=== PATIENT | female | born 1995 | race Caucasian/White ===

== ENCOUNTER 2019-11-20 10:56 | Inpatient (IN) | payer BC, OTHER ==
[~2019-11-20] VITALS: Ht 160 cm; Wt 74.8 kg
[~2019-11-20 10:56] MED LIST: AMOXICILLIN500 MG PO; AUGMENTIN 875-1 EACH PO; DEXAMETHASONE4 MG PO; NORCO 5-325 TA1 EACH PO
--- NOTE | 2019-11-20 16:48 | PR ---
[facility] [address], [place] [address] Signed Progress Notes IP Datetime Report Generated by CPSamuel: 11/20/2019 16:48 PROGRESS NOTES: [id number] Impression: Normal Progression of Labor; Reassuring Heart Rate Procedures: Intrauterine Pressure Catheter; Ultrasound Plan: Augmentation Informed Consent Obtain: Vaginal Delivery VITAL SIGNS: [id number] EXAM: [id number] Dilatation: 3.0 Effacement: 75 Station: -3 Contractions: Irregular MEMBRANES: [id number] Comments: Pt seen and examined. Rare mild contractions. Cat 1 tracing. Discussed IUPC and augmentation w/ pitcoin. Pt understands and agrees. On cervical exam, vertex well applied to cervix however fingers are noted. Hand behind head. Bedside US was performed that confirms this positioning. IUPC was carefully placed and vertex position again confirmed. No hand presentation. Discussed risk of hand/shoulder presentation and indications for . Pt understands and agrees. Will augment w/ low dose pitocin FETUS A: [id number] FHR Baseline: 145 Variability: Moderate 6-25bpm Accelerations: None Decelerations: None FHR Category: Category I Comments on Fetus A: No evidence of metabolic acidosis FETUS B: [id number] Signing Physician: Joi Arshad DO Copies: ~ *Electronically Signed* 11/20/19 7068 JOI ARSHAD DO PATIENT NAME: ULISES REYEZ PROGRESS NOTE DATE OF : 95 PHYSICIAN: JOI ARSHAD DO RPT #: [id number] REPORT IS CONFIDENTIAL AND NOT TO BE RELEASED WITHOUT AUTHORIZATION
--- NOTE | 2019-11-20 21:13 | PR ---
[facility] [address] [facility] [place], [place] [address] Signed Progress Notes IP Datetime Report Generated by CPN: 11/20/2019 21:13 PROGRESS NOTES: [id number] Impression: Normal Progression of Labor; Reassuring Heart Rate Procedures: Sterile Vag Exam Plan: Continue Present Management Informed Consent Obtain: Vaginal Delivery VITAL SIGNS: [id number] EXAM: [id number] Dilatation: 7.0 Effacement: 80 Station: -1 Contractions: Irregular MEMBRANES: [id number] Comments: Pt seen and examined. Doing well FHT Cat 1. Epidural kindly placed by anesthesia and pt much more comfortable. vertex well applied to cervix and fingers easily swept aside and behind vertex. Reviewed anticipated course of labor. All questions answered. Anticipate soon FETUS A: [id number] FHR Baseline: 145 Variability: Moderate 6-25bpm Accelerations: None Decelerations: None FHR Category: Category I Comments on Fetus A: No evidence of metabolic acidosis FETUS B: [id number] Signing Physician: Joi Arshad DO Copies: ~ *Electronically Signed* 11/20/19 1608 JOI ARSHAD DO PATIENT NAME: ULISES REYEZ PROGRESS NOTE DATE OF : 95 PHYSICIAN: JOI ARSHAD DO RPT #: [id number] REPORT IS CONFIDENTIAL AND NOT TO BE RELEASED WITHOUT AUTHORIZATION
--- NOTE | 2019-11-21 06:24 | PR ---
[facility] [address] [facility] [place], [place] [address] Signed PP Progress Notes Datetime Report Generated by CPN: 11/21/2019 06:24 SUBJECTIVE: [id number] Pain: Within Normal Limits Nausea/Vomiting: Denies Flatus: Yes Vital Signs: [id number] Vital Signs: Reviewed; Within Normal Limits Cardiovascular: Normal Respiratory: Normal Abdomen/Uterus: Normal Lochia: Normal Vulva/Perineum: Not Done Breasts: Not Done CVA Tenderness: Normal Extremities: Normal Incision: Not Applicable Progress: Normal Exam Comments: Fundus firm U-2 nontender IMPRESSION/PLAN/PROCEDURES: [id number] Impression: Normal Progression Plan: Continue Present Management Progress Notes: Pt seen and examined. Doing well. Ambulating, voiding, and tolerating full diet. Pain and lochia minimal. well. No fevers/chills or other concerns. Anticipate d/c home tomorrow. Signing Physician: Joi Arshad DO Copies: ~ *Electronically Signed* 11/21/19 0624 JOI ARSHAD DO PATIENT NAME: ULISES REYEZ PROGRESS NOTE DATE OF : 95 PHYSICIAN: JOI ARSHAD DO RPT #: [id number] REPORT IS CONFIDENTIAL AND NOT TO BE RELEASED WITHOUT AUTHORIZATION
--- NOTE | 2019-11-22 08:26 | PR ---
[facility] [address] [facility] [place], [place] [address] Signed PP Progress Notes Datetime Report Generated by CPN: 11/22/2019 08:26 SUBJECTIVE: [id number] Pain: Within Normal Limits Nausea/Vomiting: Denies Flatus: Yes Vital Signs: [id number] Vital Signs: Reviewed; Within Normal Limits Cardiovascular: Not Done Respiratory: Not Done Abdomen/Uterus: Abnormal Lochia: Normal Vulva/Perineum: Not Done Breasts: Not Done CVA Tenderness: Not Done Extremities: Normal Incision: Not Applicable Progress: Normal Exam Comments: Fundus firm, NT @ U. IMPRESSION/PLAN/PROCEDURES: [id number] Impression: Normal Progression Plan: Discharge Progress Notes: Doing well. She is ready for D/C. Signing Physician: Bella Martinez MD Copies: ~ *Electronically Signed* 11/22/19825 BELLA MARTINEZ MD PATIENT NAME: ULISES REYEZ PROGRESS NOTE DATE OF : 95 PHYSICIAN: BELLA MARTINEZ MD RPT #: [id number] REPORT IS CONFIDENTIAL AND NOT TO BE RELEASED WITHOUT AUTHORIZATION
== END 2019-11-22 11:05 | disposition home or self-care (01) | DRG 807 ==
LOC: FBC 10:56 → MS 11-21 10:20 → FBC 11-21 11:50
PROVIDERS: ADMIT Obstetrics & Gynecology
PROC: 10E0XZZ Delivery of Products of Conception, External Approach (ICD-10-PCS; principal; 2019-11-20)
PROC: 10907ZC Drainage of Amniotic Fluid, Therapeutic from Products of Conception, Via Natural or Artificial Opening (ICD-10-PCS; 2019-11-20)
PROC: 00HU33Z Insertion of Infusion Device into Spinal Canal, Percutaneous Approach (ICD-10-PCS; 2019-11-20)
PROC: 3E0R3BZ Introduction of Anesthetic Agent into Spinal Canal, Percutaneous Approach (ICD-10-PCS; 2019-11-20)
DX: O76 Abnormality in fetal heart rate and rhythm complicating labor and delivery (principal); Z37.0 Single live birth; Z3A.39 39 weeks gestation of pregnancy
CPT/HCPCS: 01960; 36415; 85027; A9270; J2590; J2795; J3010; J7121

== ENCOUNTER 2024-03-10 00:05 | Inpatient (IN) | payer OTHER ==
[2024-03-10 00:59] LABS: HEMATOCRIT 35.2 % (35.0-50.0); HEMOGLOBIN 12.4 g/dL (12.0-18.0); MCH 30.4 (27-36); MCHC 35.4 g/dl (30-36); MCV 86.1 fl (81-99); RBC 4.09 M/ul (4.3-5.7); RDW 13.9 (10.5-15.0)
[2024-03-10] MEDS ORDERED: LACTATED RINGER'S 1,000 ML IV SCH (01:00)
[2024-03-10] MEDS ORDERED: OXYTOCIN/DEXTROSE 5% 20 UNITS/100 ML BAG IV SCH (01:00)
[2024-03-10] MEDS ORDERED: MAGNESIUM HYDROXIDE/AL HYDROX 30 ML CUP PO PRN ×2 (01:00→02:30)
[2024-03-10] MEDS ORDERED: LACTATED RINGER'S 1,000 ML IV PRN (01:00)
[2024-03-10] MEDS ORDERED: CALCIUM CARBONATE 500 MG CHEW PO PRN ×2 (01:00→02:30)
[2024-03-10] MEDS ORDERED: ROPIVACAINE 0.2% 200 ML BAG ONE (01:10)
[2024-03-10] MEDS ORDERED: BUPIVACAINE HCL 0.25% 10 ML SDV INJ ONE (01:10)
[2024-03-10] MEDS ORDERED: LIDOCAINE HCL 2% 5 ML SDV ONE (01:10)
[2024-03-10] MEDS ORDERED: dexmedeTOMIDine HCl 200 MCG/2 ML VIAL ONE (01:11)
[2024-03-10 01:42] LABS: ABO O; ANTIBODY SCREEN NEGATIVE; RH POSITIVE
[2024-03-10] MEDS ORDERED: LACTATED RINGER'S 2,000 ML IV ONE (02:00)
[2024-03-10] MEDS ORDERED: LACTATED RINGER'S 500 ML IV PRN (02:00)
[2024-03-10] MEDS ORDERED: ePHEDrine sulfate 5 MG/ML SYRINGE IV PRN (02:00)
[2024-03-10] MEDS ORDERED: ROPIVACAINE 0.2% 200 ML BAG EPIDURAL SCH ×2 (02:00)
[2024-03-10] MEDS ORDERED: SENNOSIDES/DOCUSATE 1 EA TAB PO SCH (02:20)
[2024-03-10] MEDS ORDERED: LIDOCAINE 2% VISCOUS 6 ML SYR TOP ONE ×2 (02:30)
[2024-03-10] MEDS ORDERED: WITCH HAZEL/GLYCERIN 1 EA PAD TOP PRN (02:30)
[2024-03-10] MEDS ORDERED: IBUPROFEN 600 MG TAB PO PRN (02:30)
[2024-03-10] MEDS ORDERED: HYDROCODONE/ACETA 5/325 TAB PO PRN (02:30)
[2024-03-10] MEDS ORDERED: OXYCODONE HCL 5 MG TAB PO PRN (02:30)
[2024-03-10] MEDS ORDERED: HYDROCORTISONE ACETATE 25 MG SUPP PR PRN (02:30)
[2024-03-10] MEDS ORDERED: OXYTOCIN/0.9 % SODIUM CHLORIDE 500 ML IV SCH (02:30)
[2024-03-10] MEDS ORDERED: OXYCODONE/APAP 5/325 TAB PO PRN (02:30)
[2024-03-10] MEDS ORDERED: BENZOCAINE 60 ML AEROSOL TOP PRN (02:30)
[2024-03-10] MEDS ORDERED: ACETAMINOPHEN 325 MG TAB PO PRN (02:30)
[2024-03-10] MEDS ORDERED: MAGNESIUM HYDROXIDE 30 ML UDC PO PRN (02:30)
[2024-03-10 03:07] LABS: AMPHETAMINES, URINE NEGATIVE (NEGATIVE); BARBITURATES, URINE NEGATIVE (NEGATIVE); BENZODIAZEPINE, URINE NEGATIVE (NEGATIVE); BUPRENORPHINE, URINE NEGATIVE (NEGATIVE); CANNABINOID, URINE NEGATIVE (NEGATIVE); COCAINE, URINE NEGATIVE (NEGATIVE); ECSTASY, URINE NEGATIVE (NEGATIVE); FENTANYL, URINE NEGATIVE (NEGATIVE); METHADONE, URINE NEGATIVE (NEGATIVE); OPIATES, URINE NEGATIVE (NEGATIVE); OXYCODONE, URINE NEGATIVE (NEGATIVE); PHENCYCLIDINE, URINE NEGATIVE (NEGATIVE)
[2024-03-10 05:30] LABS: HEMATOCRIT 33.3 % (35.0-50.0); HEMOGLOBIN 11.6 g/dL (12.0-18.0); MCH 30.5 (27-36); MCHC 34.8 g/dl (30-36); MCV 87.6 fl (81-99); PLATELET COUNT 227 K/uL (140-440); RDW 14.1 (10.5-15.0)
[2024-03-10 06:12] LABS: BANDS, MANUAL DIFF 2; LYMPHOCYTES, MANUAL DIFF 6; MONOCYTES, MANUAL DIFF 11; NEUTROPHILS, MANUAL DIFF 81
== END 2024-03-11 10:35 | disposition home or self-care (01) | DRG 807 ==
LOC: FBCO 00:05 → FBC 00:31
PROVIDERS: ADMIT Student in an Organized Health Care Education/Training Program; ATTEND Student in an Organized Health Care Education/Training Program
PROC: 10E0XZZ Delivery of Products of Conception, External Approach (ICD-10-PCS; principal; 2024-03-10)
PROC: 3E0R3BZ Introduction of Anesthetic Agent into Spinal Canal, Percutaneous Approach (ICD-10-PCS; 2024-03-10)
PROC: 00HU33Z Insertion of Infusion Device into Spinal Canal, Percutaneous Approach (ICD-10-PCS; 2024-03-10)
DX: O99.334 Smoking (tobacco) complicating childbirth (principal); Z37.0 Single live birth; O77.0 Labor and delivery complicated by meconium in amniotic fluid; Z3A.39 39 weeks gestation of pregnancy; F17.210 Nicotine dependence, cigarettes, uncomplicated; Z79.899 Other long term (current) drug therapy
CPT/HCPCS: 36415; 80307; 85025; 85027; 86850; 86900; 86901; A9270; J2003; J2590; J2795; J7121